=== PATIENT | male | born 1935 | race Caucasian/White ===

== ENCOUNTER 2016-08-21 14:57 | Outpatient (CLI) ==
[2015-02-09 21:15] VITALS: BMI 35.6
[2016-08-21 15:48] LABS: ANION GAP 13.3; BUN/CREATININE RATIO 16.98; CALCIUM 9.2 mg/dL (8.2-10.2); CREATININE 1.59 mg/dL (0.60-1.10); POTASSIUM 4.3 mmol/L (3.5-5.1)
== END 2016-08-21 14:58 | disposition home or self-care (01) ==
LOC: CAR 14:57
PROVIDERS: ATTEND Orthopaedic Surgery
DX: Z01.812 Encounter for preprocedural laboratory examination (principal); I10 Essential (primary) hypertension; I50.9 Heart failure, unspecified; I48.91 Unspecified atrial fibrillation; I25.10 Atherosclerotic heart disease of native coronary artery without angina pectoris
CPT/HCPCS: 36415; 80048; 93005; 93010

== ENCOUNTER 2018-11-02 10:10 | Outpatient (CLI) ==
[2015-02-09 21:15] VITALS: BMI 35.6
== END 2018-11-02 10:29 | disposition short-term general hospital (02) ==
LOC: AMBL 10:10
PROVIDERS: ATTEND Internal Medicine
DX: R06.02 Shortness of breath (principal); R53.1 Weakness; R06.2 Wheezing; I48.91 Unspecified atrial fibrillation; Z99.81 Dependence on supplemental oxygen

== ENCOUNTER 2018-11-09 07:53 | Outpatient (CLI) | payer OTHER ==
[2015-02-09 21:15] VITALS: BMI 35.6
== END 2018-11-09 08:13 | disposition short-term general hospital (02) ==
LOC: AMBL 07:53
PROVIDERS: ATTEND Emergency Medicine
DX: R53.1 Weakness (principal); Z99.81 Dependence on supplemental oxygen; I48.91 Unspecified atrial fibrillation

== ENCOUNTER 2018-11-25 10:38 | Outpatient (CLI) ==
[2015-02-09 21:15] VITALS: BMI 35.6
== END 2018-11-25 11:01 | disposition short-term general hospital (02) ==
LOC: AMBL 10:38
PROVIDERS: ATTEND Internal Medicine
DX: R50.9 Fever, unspecified (principal); R53.1 Weakness; R60.0 Localized edema; R05 Cough; R32 Unspecified urinary incontinence; R09.89 Other specified symptoms and signs involving the circulatory and respiratory systems; S41.111A Laceration without foreign body of right upper arm, initial encounter; E11.9 Type 2 diabetes mellitus without complications; Z95.0 Presence of cardiac pacemaker; G62.9 Polyneuropathy, unspecified; M19.90 Unspecified osteoarthritis, unspecified site

== ENCOUNTER 2019-01-24 09:11 | Outpatient (CLI) ==
[2015-02-09 21:15] VITALS: BMI 35.6
== END 2019-01-24 09:36 | disposition short-term general hospital (02) ==
LOC: AMBL 09:11
PROVIDERS: ATTEND Emergency Medicine
DX: R53.1 Weakness (principal); I95.9 Hypotension, unspecified

== ENCOUNTER 2019-01-27 16:45 | Outpatient (CLI) ==
[2015-02-09 21:15] VITALS: BMI 35.6
== END 2019-01-27 17:09 ==
LOC: AMBL 16:45
PROVIDERS: ATTEND Emergency Medicine
DX: R53.1 Weakness (principal); S31.809A Unspecified open wound of unspecified buttock, initial encounter; Z74.01 Bed confinement status; S37.009A Unspecified injury of unspecified kidney, initial encounter; D72.829 Elevated white blood cell count, unspecified

== ENCOUNTER 2019-02-08 14:18 | Outpatient (CLI) | payer OTHER ==
[2015-02-09 21:15] VITALS: BMI 35.6
== END 2019-02-08 14:19 | disposition home or self-care (01) ==
LOC: NONPT 14:18
PROVIDERS: ATTEND General Practice
DX: N17.9 Acute kidney failure, unspecified (principal); N18.2 Chronic kidney disease, stage 2 (mild); R78.81 Bacteremia; I48.2 Chronic atrial fibrillation; R60.0 Localized edema; I50.32 Chronic diastolic (congestive) heart failure
CPT/HCPCS: 80053; 81001; 83880; 84443

== ENCOUNTER 2019-02-09 11:45 | Outpatient (CLI) | payer OTHER ==
[2015-02-09 21:15] VITALS: BMI 35.6
--- NOTE | 2019-02-09 12:32 | DI ---
EXAM: Two views of the chest. History: Chest trauma. Findings: Evaluation is limited due to head over the lung apices. Heart is mildly enlarged. There is no overt pulmonary edema. No appreciable pleural fluid and no pneumothorax. No acute osseous abn ormalities. Impression: Mild cardiomegaly without acute disease in the chest
== END 2019-02-09 11:46 | disposition home or self-care (01) ==
LOC: RAD 11:45
PROVIDERS: ATTEND General Practice
DX: R29.6 Repeated falls (principal); Z74.09 Other reduced mobility